=== PATIENT | male | born 1955 | race Caucasian/White ===

== ENCOUNTER 2017-04-10 14:30 | Inpatient (IN) ==
[2017-04-10 15:29] LABS: Basophils % 0.3 % (0.0-0.8); Eosinophils # 0.1 10*3/uL (0.0-0.87); Eosinophils % 1.3 % (0.00-10.9); Hematocrit 30.6 VOL% (42.0-52.0); Hemoglobin 10.9 GM/DL (14.0-18.0); Immature Granulocytes % 0.5 %; Immature Granulocytes Absolute 0.02 #; Lymphocytes # 0.7 10*3/uL (1.4-4.0); Mean Corpuscular HGB Conc 35.6 GM/DL (32-36); Mean Corpuscular Hemoglobin 42 PG (27-34); Mean Corpuscular Volume 118.1 FL (87-102); Mean Platelet Volume 9.4 FL (9.6-12.0); Monocytes # 0.4 10*3/uL (0.11-0.8); Neutrophils # 2.9 10*3/uL (1.4-7.4); Neutrophils % 71.9 % (38.7-73.9); Red Blood Count 2.59 MC/CUMM (3.8-5.5); Red Cell Distribution Width 14.6 % (9.3-17.3)
[2017-04-10 15:36] LABS: Platelet Count 102 T/CUMM (130-400)
[2017-04-10 15:46] LABS: Hypochromasia 1+; Platelet Estimate Decreased
[2017-04-10 15:55] LABS: Apearance,Urine CLEAR (Clear); Bilirubin,Urine Negative (Negative); Blood, Urine Negative (Negative); Calcium Oxalate Crystals,Urine Occasional /HPF (Few); Glucose,Urine (UA) Negative (Negative); Hyaline Casts,Urine 5 /LPF (0-3); Ketones,Urine Negative (Negative); Mucus,Urine Occasional /LPF (Occasional); Nitrite,Urine Negative (Negative); Protein,Urine 30 MG/DL; Squamous Epithelial Cell,Urine Occasional /HPF (0-10); Urine Color Amber (Yellow); Urine Specific Gravity 1.014 (1.001-1.035); WBC,Urine 4 /HPF (0-6)
[2017-04-10 16:01] LABS: Albumin 2.3 G/DL (3.4-5.0); Calcium 8.3 MG/DL (8.5-10.1); Magnesium 1.8 MG/DL (1.8-2.4); Osmolality,Calculated 270.8 MOS/KG (273-304); Potassium 3.3 MMOL/L (3.5-5.1); Total Protein 6.6 G/DL (6.4-8.3)
--- NOTE | 2017-04-10 16:07 | CT Report ---
CT abdomen pelvis w con Indication: Abdominal and pelvic pain. Comparison: None. Technique: CT of the abdomen and pelvis was performed following administration of intravenous contrast. The CT examination was performed using one or more of the following dose reduction techniques: Automatic exposure control, adjustment of the mA and kV according to patient size, or iterative reconstruction techniques. Findings: Lower chest: Heart is mildly enlarged. Coronary artery calcifications and/or stents are present. Additional history of previous sternotomy. Liver: The liver demonstrates a nodular margin and sclerotic features. A moderate amount of ascites is noted within the abdomen. Gallbladder: Partially calcified gallstones to calcified gallstones layer dependently within the gallbladder. Gallbladder wall thickening is present which is nonspecific finding in the setting of ascites. Spleen: Spleen is minimally enlarged suggesting portal venous hypertension. Spleen measures 14 cm in craniocaudal dimension, 5.3 cm in transverse dimension, and 14 cm in AP dimension. Pancreas: Pancreas demonstrates no significant abnormality. Adrenal glands: The adrenal glands demonstrate no significant abnormalities. Kidneys: Bilaterally, the kidneys demonstrate multiple calcifications of the renal arteries involving main renal arteries and interpolar renal arteries. No focal lesion of either kidney is demonstrated. Aorta: Aorta demonstrates diffuse intimal calcification which extends bilaterally into the iliac arteries. The common iliac arteries bilaterally demonstrate fusiform enlargement mural thrombus. The right common iliac artery measures 2.4 cm. The left common iliac artery measures up to 2.4 cm. Inferior vena cava: Inferior vena cava is normal in appearance. Lymph nodes: Celiac lymph node adjacent pancreatic head is demonstrated. This is borderline in size to minimally enlarged measuring 14 mm. This finding is nonspecific finding. Otherwise there is no adenopathy noted within the abdomen or pelvis. Stomach and bowel: The appearance of the stomach, duodenum, small bowel, and large bowel suggests no acute findings. A moderate to large amount of ascites is interval lobe and within the leaves of the mesentery. Appendix is unremarkable. Multiple diverticula are demonstrated along the descending colon and sigmoid colon. There may be some evidence of fat stranding along the periserosal surface of the sigmoid colon. The amount of ascites somewhat hinders interpretation. Intrapelvic contents: No acute findings are noted within the pelvis. Osseous structures: Multilevel degenerative changes of the lumbar spine are demonstrated. Vacuum disc phenomenon at L5-S1 is present. Soft tissues and musculature: Soft tissues and musculature of the body wall demonstrate no acute findings. Impression: 1. Cirrhotic appearance of the liver with findings suggesting mild portal venous hypertension and moderate to large amount of ascites are present. 2. Cholelithiasis is present. Gallbladder wall thickening additionally is present which is nonspecific finding in the setting of ascites. 3. Celiac axis lymph nodes are minimally enlarged which is a nonspecific finding in the setting of cirrhosis. 4. Sigmoid diverticulitis cannot be excluded. 04/10/2017 4:00 PM PROCEDURE INTERPRETED AT [facility] DEPARTMENT OF RADIOLOGY Final Report Signed by: Dr. Sarabjit Dupree
[2017-04-10] MEDS ORDERED: FUROSEMIDE 40 MG/4 ML VIAL IV STA (16:11)
--- NOTE | 2017-04-10 16:24 | Emergency Department Note ---
Arrival - Arrival Chief Complaint: Abdominal / Flank Pain Stated Complaint: belly pain and swollen ED Nursing Triage Note: c/o abd swelling onset 3 days ago. pt is having trouble standing. states feels like he is drunk. pt stopped drinking 4 days ago Mode of Arrival: Wheelchair Limitations: No Limitations Source: Patient Time Seen by Provider: 04/10/17 16:09 - History of Present Illness HPI Narrative: This 61-year-old white male presents with a history of 3 days of rapid distention of his abdomen. The patient has long-standing alcoholic liver disease anafact admits to 2 sixpacks of beer consumed 48 hours ago and alleges nonsense. The patient denies taking any medication for ascites on a regular basis and likewise denies any nausea, vomiting, abdominal pain, heartburn, belching, fever, or chills. He does as expected complain of loose stools which are pale to white as well as dark urine. During the same timeframe of increasing distention, he has had significant difficulty walking and has been ataxic during the same timeframe. Currently he is not jaundiced and in no medical distress. Onset (ago): day(s) (Patient presents onset of symptoms 3 days prior to presentation.) Allergies/Adverse Reactions: Allergies Allergy/AdvReac Type Severity Reaction Status Date / Time No Known Allergies Allergy Unverified 10/22/16 08:16 Home Medications: Home Medications Medication Instructions Recorded Confirmed Type Atorvastatin [Lipitor] 10 mg PO DAILY 04/10/17 04/10/17 History Efavirenz/Emtricitab/Tenofovir 1 each PO DAILY 04/10/17 04/10/17 History [Atripla Tablet] Lisinopril [Lisinopril] 5 mg PO QOTHER DAY 04/10/17 04/10/17 History Review of System - Review of System 12 point system: reviewed and no additional remarkable complaints except as stated - Review of System Constitutional: Present: as per HPI Gastrointestinal: Present: as per HPI Hematological/Lymphatic: Present: as per HPI Medical,Surgical,& Family Hx - Medical History Cardio: History of: Cardiovascular Problems (triple bypass) Gastrointestinal: History of: Liver Problems (enlarged) - Social History Smoking Status: Smoker, status unknown Frequency of Alcohol Use: Frequently Type of Drug Use: None Exam Physical Examination: GENERAL: Well developed, well nourished elderly white male in no acute distress. HEENT: Normocephalic. No trauma. Moist mucous membranes. EOMI. PERRLA. ENT NML NECK: Supple. No adenopathy. CARDIAC: Regular. No murmurs. Heart rate 93 CHEST: Clear to auscultation. No respiratory distress. O2 sat 100% ABDOMEN: Soft. Nontender. Large fluid wave with hypoactive bowel sounds. EXTREMITIES: No trauma. Normal ROM. No pedal edema. SKIN: No diaphoresis. No rash. No jaundice. NEURO: Alert. Oriented 3. Motor, sensory, vibratory intact. No asterixis no focal deficits. Vital Signs: Vital Signs Temperature 97.3 F L 04/10/17 16:39 Pulse Rate 93 H 04/10/17 16:39 Respiratory Rate 18 04/10/17 16:39 Blood Pressure 120/82 04/10/17 16:39 O2 Sat by Pulse Oximetry 100 04/10/17 14:43 Course - Reevaluation(s) Reevaluation #1: Advised patient of the need for hospitalization to stabilize his situation. - Consultations Consultation #1: Discussed with hospitalist service who will admit for further evaluation treatment. Results - Labs CBC & BMP: 04/10/17 15:03 04/10/17 15:03 Labs: I reviewed the laboratory noted the low potassium, low hematocrit, low platelets , elevated lactic acid, and diffuse abnormalities of LFT. - Impressions EKG: Sinus rhythm at 84 with normal VA interval but incomplete right bundle branch block. Old inferior IN. Nonspecific ST changes. No acute injury pattern noted. - Diagnostic Findings Procedure: Chest x-ray: image reviewed by me, report reviewed by me (No interval change with evidence of prior median sternotomy as well as borderline cardiomegaly.), CT Abdomen and Pelvis: image reviewed by me, report reviewed by me (Cirrhosis with moderate ascites, cholelithiasis, cannot rule out sigmoid diverticulitis) Disposition Clinical Impression: Alcoholic liver disease, Ascites, HIV Case discussed with: patient Disposition: Still a Patient Condition: Guarded Time of Disposition: 16:45
--- NOTE | 2017-04-10 16:31 | XRay Report ---
XR chest 1V portable Indication: Shortness of breath Comparison: Chest x-ray 05/10/2010 Technique: Portable AP chest was performed. Findings: The heart is minimally enlarged. Prior sternotomy is stable. Pulmonary vasculature demonstrates no specific abnormality. Hilar structures demonstrate fairly symmetric appearance. The lungs appear clear. Bones and soft tissues demonstrate no evidence of acute pathology. Impression: 1. No evidence of acute pathology. 04/10/2017 4:28 PM PROCEDURE INTERPRETED AT [facility] DEPARTMENT OF RADIOLOGY Final Report Signed by: Dr. Sarabjit Dupree
[2017-04-10] MEDS ORDERED: FUROSEMIDE 100 MG/10 ML VIAL ONE (16:41)
--- NOTE | 2017-04-10 16:42 | EKG Report ---
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
[2017-04-10] MEDS ORDERED: SPIRONOLACTONE 100 MG TABLET PO STA (16:58)
[2017-04-10] MEDS ORDERED: ONDANSETRON 4 MG/2 ML VIAL IV PRN (17:03)
[2017-04-10] MEDS ORDERED: chlordiazePOXIDE 25 MG CAPSULE PO PRN (17:03)
[2017-04-10] MEDS ORDERED: POTASSIUM CHLORIDE 20 MEQ TABLET PO STA (17:12)
[2017-04-10 17:23] LABS: INR 1.1; PT Patient Result 11.5 SECS; Partial Thromboplastin Time 29.2 SECS (0-40)
[2017-04-10] MEDS ORDERED: MAGNESIUM SULF RIDER 2 GM in PREMIX 1 EACH IV STA (17:23)
[2017-04-10 17:30] LABS: D-Dimer 2.9 MG/L FEU
[2017-04-10 17:39] LABS: Magnesium 1.8 MG/DL (1.8-2.4); Thyroid Stimulating Hormone 3.18 uIU/ml (0.358-3.74)
[2017-04-10 17:43] LABS: Barbiturates Screen,Urine Negative (Negative); Benzodiazepines Screen,Urine Negative (Negative); Cannabinoid Screen,Urine Negative (Negative); Opiate Screen,Urine Negative (Negative); Phencyclidine Screen,Urine Negative (Negative)
--- NOTE | 2017-04-10 17:45 | Hospitalist History & Physical ---
<Marek Burrows - Last Filed: 04/10/17 17:34> Assessment and Plan - Time spent with patient Time spent with patient: Greater than 30 minutes (1) Ascites due to alcoholic cirrhosis Status: Acute Assessment and plan: Admit for paracentesis. Obtain ABGs, blood cultures 2, hemoglobin A1c, blood ketones. Ertapenem IV every 24 hours. Continue vitamins including thiamine. Current Visit: Yes (2) HIV (human immunodeficiency virus infection) Status: Acute Assessment and plan: Followed by a [facility]. Currently on antivirals. Current Visit: Yes (3) History of coronary artery bypass graft x 3 Status: Acute Assessment and plan: Continue home medications as appropriate. Current Visit: Yes History of Present Illness Chief complaint: abdominal pain/distention History of present illness: Mr. Fofana is a 61 year old white male with a past medical history significant for HIV, coronary artery disease with triple bypass surgery, long-standing alcoholic liver disease who presents to the ED with a 3 day history of rapid distention of his abdomen. Patient notes that he woke up this morning and could not focus his eyes. He denies alcohol use for the past 48 hours, though he does state that he consumes several energy drinks and sodas throughout the day contributing to this ascites. Regarding his HIV, patient states that he is seen at her clinic every 3 months and has been on antivirals for several years now. On exam, the patient denies any knowledge of cirrhosis though he confirms prior knowledge of a "enlarged liver". He tells me that he was counseled to quit drinking however he has not done so. Patient denies headache, chest pain, shortness of breath, fever or chills, nausea or vomiting, excessive urine output , bright red blood per rectum. Labs on admission are WBC 4.0, hemoglobin 10.9, hematocrit 30.6, RBCs 2.59, platelet count 102, sodium 137, potassium 3.3, BUN 3 , creatinine 0.70, glucose 122, lactic acid 2.2, ammonia 25, BNP 89. Urinalysis is negative for infection. Serum alcohol is negative. Abdominal CT shows cirrhotic appearing liver suggestive of mild portal venous hypertension and moderate to large amounts of ascites. Cholelithiasis is also present with gallbladder wall thickening. Chest x-ray shows no evidence of acute pathology. Case has been discussed with Dr. Brady, ER physician, and Dr. Pascual, admitting physician the patient will be admitted to the hospital medicine service for further evaluation and treatment. Patient is a full code. Home medications have been reviewed and will be reconciled. Home Medications Medication Instructions Recorded Confirmed Type Atorvastatin [Lipitor] 10 mg PO DAILY 04/10/17 04/10/17 History Efavirenz/Emtricitab/Tenofovir 1 each PO DAILY 04/10/17 04/10/17 History [Atripla Tablet] Lisinopril [Lisinopril] 5 mg PO QOTHER DAY 04/10/17 04/10/17 History Allergies Allergy/AdvReac Type Severity Reaction Status Date / Time No Known Allergies Allergy Unverified 10/22/16 08:16 Medical,Surgical,& Family Hx - Medical History Cardio: History of: Cardiovascular Problems (triple bypass) Gastrointestinal: History of: Liver Problems (enlarged) Other: History of: HIV - Surgical History Cardiac Surgeries: Sugical HX of: Cardiac Surgery - Family History Family History: Reports;: Family Diabetes, Family Heart Disease, Family Hypertension - Social History Smoking Status: Former smoker Frequency of Alcohol Use: Frequently Type of Drug Use: None Marital Status: Single Lives With:: Alone Functional capacity: independent ambulation - Constitutional Constitutional: Absent: chills, fever(s), headache(s) - EENT Eyes: Present: other (Inability to focus) - Cardiovascular Cardiovascular: Present: edema. Absent: chest pain at rest, dyspnea, lightheadedness, palpitations - Respiratory Respiratory: Absent: cough - Gastrointestinal Gastrointestinal: Present: abdominal pain. Absent: heartburn, hematemesis, hematochezia, nausea, vomiting, jaundice - Genitourinary Genitourinary: Absent: difficulty urinating, hematuria - Psychiatric Psychiatric: Present: anxiety, confusion - Hematologic/Lymphatic Hematologic/Lymphatic: Present: easy bleeding, easy bruising Exam - Constitutional Vitals: Period Temp Pulse Resp BP Sys/Schmitt Pulse Ox Last 24 Hr 97.3 F-97.3 F 86-97 18-20 120-158/74-101 98-100 General appearance: mild distress, other (Obese) - Head Head exam: Present: normocephalic. Absent: abrasion, laceration - Eye Eye exam: Present: EOMI - Neck Neck exam: Present: normal inspection. Absent: lymphadenopathy, tenderness - Respiratory Respiratory exam: Present: clear to auscultation bilaterally. Absent: rhonchi, wheezes - GI/Abdominal GI/Abdominal exam: Present: ascites, distended, firm, tenderness. Absent: mass - Extremities Exam Extremities exam: Present: edema - Neurological Exam Neurological exam: Present: alert, oriented X3, CN II-XII intact - Psychiatric Psychiatric exam: Present: anxious - Skin Skin exam: Present: warm, dry, mottled, rash Results - Labs CBC & BMP: 04/10/17 15:03 04/10/17 15:03 Lab Results: I have reviewed the past 24 hour labs - EKG EKG results: interpreted by MICHAEL, sinus rhythm - Diagnostic Findings Procedure: Abdominal x-ray: image reviewed by me, report reviewed by me ( Cirrhotic appearing liver, ascites), Chest x-ray: image reviewed by me, report reviewed by me (Unremarkable) <SamaraNeha R - Last Filed: 04/10/17 18:48> Assessment and Plan (1) Ascites due to alcoholic cirrhosis Status: Acute Assessment and plan: SBP prophylaxis with invanz, US paracentesis by IR in am, therpeutic more than diagnostic, patient has known cirrhosis Current Visit: Yes (2) Pancytopenia Status: Acute Assessment and plan: PTT, PT, D-dimer, fibrinogen, most likely due to liver failure, cont thiamine and folate, consider checking b12 Current Visit: Yes (3) Ketosis Status: Acute Assessment and plan: serum ketones pending, no alcohol in two days, but smells still like alcohol, ? starvation ketosis Current Visit: Yes (4) Hypertension Status: Acute Assessment and plan: lisinopril 5 mg po daily Current Visit: Yes (5) HIV (human immunodeficiency virus infection) Status: Acute Assessment and plan: efavirenz/emtricitab/tenofovir Current Visit: Yes (6) History of coronary artery bypass graft x 3 Status: Acute Assessment and plan: not on anticoagulation due to pancytopenia, i would still consider giving him a baby asa Current Visit: Yes (7) Alcoholic Status: Acute Assessment and plan: thiamine, folate, librium and prn ativan Current Visit: Yes History of Present Illness History of present illness: Mr. Fofana is a 61 year old male patient seen and examined. Agree with above, patient has not drank for 48 hour. - EENT Eyes: Absent: blurry vision, diplopia Ears: Absent: decreased hearing, ear discharge - Neurological Neurological: Present: confusion, headache(s). Absent: syncope - Psychiatric Psychiatric: Present: depression - Endocrine Endocrine: Present: fatigue Exam - Constitutional Vitals: Period Temp Pulse Resp BP Sys/Schmitt Pulse Ox Last 24 Hr 97.3 F-97.3 F 86-97 18-20 120-158/74-101 98-100 - Eye Eye exam: Absent: scleral icterus Pupils: Present: HAWA, normal accommodation - ENT ENT exam: Present: normal exam, normal external ear exam - Cardiovascular Cardiovascular exam: Present: regular rate and rhythm. Absent: systolic murmur - Extremities Exam Extremities exam: Absent: normal capillary refill - Neurological Exam Neurological exam: Present: reflexes normal. Absent: motor sensory deficit - Psychiatric Psychiatric exam: Present: flat affect Results - Labs CBC & BMP: 04/10/17 15:03 04/10/17 15:03 Labs: Lactic acid 2.2, calcium 8.3, BNP 89, ammonia 25, lipase 131, TSH 3.18, UA positive for protein, 4 WBCs, hyaline casts, UA negative, serum alcohol less than 15, d-dimer 2.9 fibrinogen 266, INR 1.1, PTT 29
[2017-04-10 18:12] LABS: ABG Base Excess 0.5 MMOL/L (-2.5-2.5); ABG HCO3 24.9 MMOL/L (20-26); ABG Oxygen Saturation 97.7 % (95-100); ABG PCO2 33.6 MM HG (35-48); ABG PH 7.458 (7.35-7.45); ABG PO2 87.7 MM HG (80-95); ABG TCO2 20.9 MMOL/L (23-27); Allen Test Positive; Pt O2 Delivery Device Room Air
[2017-04-10] MEDS ORDERED: MAGNESIUM SULF RIDER 2 GM in PREMIX 1 EACH IV ONE (20:00)
[2017-04-10] MEDS ORDERED: POTASSIUM CHLORIDE 20 MEQ TABLET PO ONE (20:00)
[2017-04-10] MEDS: ENOXAPARIN 30 MG/0.3 ML SYRINGE SUBCUT SCH (20:13)
[2017-04-10] MEDS: LORazepam 1 MG TABLET PO PRN (20:13)
[2017-04-10] MEDS: LACTULOSE 20 GM/30 ML UDCUP PO SCH (20:13)
--- NOTE | 2017-04-10 20:50 | Ultrasound Report ---
US venous doppler LE BI Indication: Lower extremity swelling and pain. Comparison: None. Technique: Using a transcutaneous probe, grayscale, spectral Doppler, and color Doppler images of the bilateral lower extremity venous structures were captured and stored. Grayscale images prior to and following compression were obtained. Interrogated venous structures include the bilateral common femoral vein, superficial femoral vein (proximal, mid, and distal), and popliteal vein. Findings: There is no evidence of thrombus within the interrogated venous structures. the interrogated venous segments demonstrate presence of both color flow and spectral flow. Impression: 1. No evidence of venous thrombosis. 04/10/2017 8:48 PM PROCEDURE INTERPRETED AT [facility] DEPARTMENT OF RADIOLOGY Final Report Signed by: Dr. Sarabjit Dupree
[2017-04-10] MEDS ORDERED: CARVEDILOL 6.25 MG TABLET PO SCH (21:00)
[2017-04-10] MEDS: ERTAPENEM 1,000 MG in SODIUM CHLORIDE 0.9% 100 ML IV SCH (22:16)
[2017-04-11 07:07] LABS: Basophils % 0.6 % (0.0-0.8); Eosinophils # 0.1 10*3/uL (0.0-0.87); Eosinophils % 2.6 % (0.00-10.9); Hematocrit 26.6 VOL% (42.0-52.0); Hemoglobin 9.5 GM/DL (14.0-18.0); Immature Granulocytes % 0.6 %; Immature Granulocytes Absolute 0.02 #; Lymphocytes # 0.9 10*3/uL (1.4-4.0); Lymphocytes % 24.9 % (21.2-54.2); Mean Corpuscular HGB Conc 35.7 GM/DL (32-36); Mean Corpuscular Hemoglobin 42 PG (27-34); Mean Corpuscular Volume 117.7 FL (87-102); Mean Platelet Volume 9.6 FL (9.6-12.0); Monocytes # 0.3 10*3/uL (0.11-0.8); Monocytes % 9.4 % (1.7-12.7); Neutrophils # 2.1 10*3/uL (1.4-7.4); Neutrophils % 61.9 % (38.7-73.9); Platelet Count 99 T/CUMM (130-400); Red Blood Count 2.26 MC/CUMM (3.8-5.5); Red Cell Distribution Width 14.5 % (9.3-17.3); White Blood Count 3.4 T/CUMM (4-12)
[2017-04-11 07:40] LABS: Bilirubin,Total 1.8 MG/DL (0.2-1.0); Calcium 8.1 MG/DL (8.5-10.1); Osmolality,Calculated 272.5 MOS/KG (273-304); Potassium 3.5 MMOL/L (3.5-5.1); Risk Ratio 1.45; Total Protein 5.8 G/DL (6.4-8.3); VLDL CHOLESTEROL 7.8 MG/DL
[2017-04-11 07:49] LABS: Hypochromasia Slight; Lymphocytes 16 % (20-55); Microcytosis 1+; Platelet Estimate Decreased; Segmented Neutrophils 79 % (50-85); Total Cells Counted 100
[2017-04-11] MEDS ORDERED: SPIRONOLACTONE 100 MG TABLET PO SCH (09:00)
[2017-04-11] MEDS: FOLIC ACID 1 MG TABLET PO SCH (09:06)
[2017-04-11] MEDS: THIAMINE 100 MG TABLET PO SCH (09:06)
[2017-04-11] MEDS: MULTIVITAMIN (CENTRUM) TABLET PO SCH (09:06)
[2017-04-11] MEDS: ATRIPLA PO SCH (09:07)
[2017-04-11] MEDS: LISINOPRIL 5 MG TABLET PO SCH (09:07)
[2017-04-11] MEDS: LACTULOSE 20 GM/30 ML UDCUP PO SCH ×3 (09:07→21:15)
--- NOTE | 2017-04-11 10:12 | Post Interventional Procedure ---
Pre-op diagnosis: Ascites Post-op diagnosis: same Procedure: Paracentesis Radiologist: Evans Martin Anesthesia: local Specimens: other (3400 cc straw colored ascites) Estimated blood loss: none Complications: none Condition: stable Assessment and Plan - Time spent with patient Time spent with patient: Less than 30 minutes
[2017-04-11 10:41] LABS: Neutrophils,Peritoneal Fluid 76 %; RBC,Peritoneal Fluid 117 T/CUMM
--- NOTE | 2017-04-11 11:39 | Hospitalist Progress Note ---
Assessment and Plan (1) Ascites due to alcoholic cirrhosis Status: Acute Assessment and plan: 1)alcoholism- no alcohol for nearly 7 days without sign of withdrawal. on librium. 2)cirrhosis with first paracentesis for rapidly acculmulated ascites- PMNs in fluid 203- less than 250 benchmark for SBP. On invanz. consult to GI- he needs to be connected to someone for varices surveillance, management of diuretics, etc. Adjust aldactone that was started in the ER. add lasix orally also. 3)HIV- continue meds. 4)h/o CABG Current Visit: Yes (2) HIV (human immunodeficiency virus infection) Status: Acute Current Visit: Yes (3) History of coronary artery bypass graft x 3 Status: Acute Current Visit: Yes (4) Pancytopenia Status: Acute Current Visit: Yes (5) Hypertension Status: Acute Current Visit: Yes (6) Alcoholic Status: Acute Current Visit: Yes Hospitalist: Subjective Interval history: Mr Fofana is feeling ok, better after his paracentesis this morning. He has never had paracentesis before. He says he sees an ID doctor for his HIV and has known of enlarged liver but has not seen a stitch marker. He takes his meds regularly. He hasn't had anything to drink since 04/05. He denies any tremors or hallucinations. He is feeling good and is hungry. Lives alone and has some help nearby. Wants a wheelchair. Exam - Constitutional Vitals: Period Temp Pulse Resp BP Sys/Schmitt Pulse Ox Last 24 Hr 97.3 F-98.8 F 79-97 17-22 105-158/59-101 92-100 General appearance: no acute distress, over weight - Head Head exam: Present: normocephalic, atraumatic - Eye Eye exam: Present: EOMI. Absent: scleral icterus - Respiratory Respiratory exam: Present: clear to auscultation bilaterally - Cardiovascular Cardiovascular exam: Present: regular rate and rhythm - GI/Abdominal GI/Abdominal exam: Present: normal bowel sounds, ascites (still some fluid wave after paracentesis), soft. Absent: tenderness - Extremities Exam Extremities exam: Present: edema (trace) - Neurological Exam Neurological exam: Present: alert, oriented X3 (rambling speech, habitual licking of his lower lip/malagon, hopeful of curing cirrhosis), motor sensory deficit (generalized debility, requests wheechair.) - Skin Skin exam: Present: warm, dry Results - Labs CBC & BMP: 04/11/17 06:26 04/11/17 06:26 Lab Results: I have reviewed the past 24 hour labs
--- NOTE | 2017-04-11 12:23 | Ultrasound Report ---
US paracentesis abd w/image Indication: New onset ascites. HIV positive. Ultrasound-guided paracentesis Description: A formal timeout was performed. Maximum sterile barrier technique was used. The left lower quadrant was prepped and draped in sterile fashion. Under sonographic guidance, a 6 Hungarian pigtail catheter was advanced into the ascites using trocar technique. A captured sonographic image documents needle position. The needle was removed. Through the catheter, we obtained a total of 3400 cc of straw-colored ascites. No additional fluid could be obtained. Therefore, the catheter was removed. A bandage was placed at the puncture site. The patient tolerated the procedure well. Specimen: 3400 cc of ascites held for laboratory studies. Impression: Ultrasound-guided paracentesis. PROCEDURE INTERPRETED AT [facility] DEPARTMENT OF RADIOLOGY Final Report Signed by: Evans Martin M.D.
[2017-04-11 12:57] LABS: Hepatitis A Ab IgM Quant 0.14 Index; Hepatitis A Ab IgM Result Negative (Negative); Hepatitis B Core IgM Quant 0.05 Index; Hepatitis B Core IgM Result Negative (Negative); Hepatitis B Surface Ag Quant < 0.10 Index; Hepatitis B Surface Ag Result Negative (Negative); Hepatitis C Virus Ab Quant 0.17 Index; Hepatitis C Virus Ab Result Negative (Negative)
[2017-04-11] MEDS: FUROSEMIDE 40 MG TABLET PO SCH (13:41)
--- NOTE | 2017-04-11 15:08 | Gastrointestinal Consult Note ---
<Dayanna Lane - Last Filed: 04/11/17 15:04> Assessment and Plan (1) Cirrhosis Status: Acute Assessment and plan: 04/11-Admitted with abdominal distention with findings of ascites and noted on CT of abdomen of cirrhotic changes to the liver. 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 Paracentesis with 3400 ml removed on today, without findings of SBP. Albumin gradient of 1.4. Last endoscopy years prior with no knowledge of findings (3 years ago) in [place]. Attempt to obtain prior endoscopy records. Currently on Aldactone 50 BID and Laxix 40mg QD. Currently also on Invanz. Plan and addendum to follow by Dr Land. Current Visit: Yes History of Present Illness Chief complaint: Cirrhosis History of present illness: Mr. Fofana is a 61 year old male who was admitted to the hospital on 04/10 with abdominal pain and distention. Patient has a prior history of HIV, in which he is followed by Dr. Land out of [place] for this. He also has a history of CAD with bypass surgery as well as long-standing history of alcohol use. Patient states that over the last 3-4 days he is noted that his abdomen has began to swell. He states he was not feeling very well and on yesterday he noticed that he could not focus very well and his vision was being affected. He then came to the emergency room for further evaluation. Patient states that his last alcohol use was approximately 3 days ago. He states that he has drank approximately 12 beers a day since he was a teenager. Patient states that sometimes he drinks more often in higher quantities depending on "what is going on in my life". Patient denies any other recreational drug use. He states that approximately 3 years ago he was found to have an elevation in his liver enzymes and was told at that time that he had an enlarged liver. He was also told to discontinue his alcohol use in which patient states he did for a short time however he began drinking again. On admission, he had a CT of the abdomen with contrast and was noted to have cirrhotic appearance of the liver with mild portal venous hypertension as well as large amount of ascites. He was also noted to have cholelithiasis with some gallbladder wall thickening, nonspecific due to the ascites, as well as possible sigmoid diverticulitis. He was also noted to have a bilirubin of 1.8 and alkaline phosphatase of 203. He had large volume paracentesis this morning by Dr Martin with 3400cc removed, without findings of SBP. Albumin gradient noted at 1.4. Prior endoscopy approximately 3 years ago reported done at [place], unable to recall findings. Home Medications Medication Instructions Recorded Confirmed Type Atorvastatin [Lipitor] 10 mg PO DAILY 04/10/17 04/10/17 History Efavirenz/Emtricitab/Tenofovir 1 each PO DAILY 04/10/17 04/10/17 History [Atripla Tablet] Lisinopril [Lisinopril] 5 mg PO QOTHER DAY 04/10/17 04/10/17 History Allergies Allergy/AdvReac Type Severity Reaction Status Date / Time No Known Allergies Allergy Unverified 10/22/16 08:16 Medical,Surgical,& Family Hx - Medical History Cardio: History of: Cardiovascular Problems (triple bypass) Endocrine: History of: Dyslipidemia Gastrointestinal: History of: Liver Problems (enlarged) Other: History of: HIV - Surgical History Cardiac Surgeries: Sugical HX of: Cardiac Surgery - Family History Family History: Reports;: Family Diabetes (mother, father), Family Heart Disease (mother), Family Hypertension (mother) Denies;: Family Anesthesia Reaction, Family Cancer, Family Hematology, Family Psychiatric Problems, Family Stroke, Additional Family History - Social History Smoking Status: Current every day smoker Frequency of Alcohol Use: Frequently Type of Drug Use: None 12 point system: reviewed and no additional remarkable complaints except as stated - Constitutional Constitutional: Present: as per HPI - EENT Eyes: Present: as per HPI Ears: Present: as per HPI Nose, mouth and throat: Present: as per HPI - Cardiovascular Cardiovascular: Present: as per HPI - Respiratory Respiratory: Present: as per HPI - Gastrointestinal Gastrointestinal: Present: as per HPI, abdominal pain - Genitourinary Genitourinary: Present: as per HPI - Musculoskeletal Musculoskeletal: Present: as per HPI - Neurological Neurological: Present: as per HPI - Psychiatric Psychiatric: Present: as per HPI - Endocrine Endocrine: Present: as per HPI - Hematologic/Lymphatic Hematologic/Lymphatic: Present: as per HPI Exam - Constitutional Vitals: Period Temp Pulse Resp BP Sys/Schmitt Pulse Ox Last 24 Hr 96.7 F-98.8 F 79-97 17-22 105-158/59-101 91-100 General appearance: normal weight, no acute distress - Head Head exam: Present: normal inspection, normocephalic - Eye Eye exam: Present: other (Lids and conjunctive are unremarkable). Absent: scleral icterus - ENT ENT exam: Present: normal exam, normal oropharynx - Neck Neck exam: Present: normal inspection - Respiratory Respiratory exam: Present: clear to auscultation bilaterally. Absent: rales, rhonchi, wheezes - Cardiovascular Cardiovascular exam: Present: regular rate and rhythm. Absent: diastolic murmur , JVD, systolic murmur - GI/Abdominal GI/Abdominal exam: Present: normal bowel sounds, distended, soft. Absent: ascites, mass, organomegaly, tenderness - Extremities Exam Extremities exam: Present: normal inspection, full ROM - Back Exam Back exam: Present: normal inspection - Neurological Exam Neurological exam: Present: alert, oriented X3 - Psychiatric Psychiatric exam: Present: normal affect, normal mood - Skin Skin exam: Present: normal color, warm, dry Results - Labs CBC & BMP: 04/11/17 06:26 04/11/17 06:26 Lab Results: I have reviewed the past 24 hour labs - Diagnostic Findings Procedure: CT Abdomen and Pelvis: report reviewed by me, Ultrasound: report reviewed by me <Toni Land - Last Filed: 04/11/17 19:40> History of Present Illness History of present illness: Mr. Fofana is a 61 year old male Exam - Constitutional Vitals: Period Temp Pulse Resp BP Sys/Schmitt Pulse Ox Last 24 Hr 96.7 F-98.8 F 84-95 17-22 105-132/59-79 91-99 Results - Labs CBC & BMP: 04/11/17 06:26 04/11/17 06:26
[2017-04-11] MEDS: ENOXAPARIN 30 MG/0.3 ML SYRINGE SUBCUT SCH (21:15)
[2017-04-11] MEDS: SPIRONOLACTONE 100 MG TABLET PO SCH (21:15)
[2017-04-11] MEDS: ERTAPENEM 1,000 MG in SODIUM CHLORIDE 0.9% 100 ML IV SCH (21:15)
[2017-04-12 07:11] LABS: Basophils % 0.6 % (0.0-0.8); Eosinophils # 0.1 10*3/uL (0.0-0.87); Hematocrit 27.8 VOL% (42.0-52.0); Hemoglobin 9.7 GM/DL (14.0-18.0); Immature Granulocytes % 0.3 %; Immature Granulocytes Absolute 0.01 #; Lymphocytes # 0.9 10*3/uL (1.4-4.0); Lymphocytes % 27.3 % (21.2-54.2); Mean Corpuscular HGB Conc 34.9 GM/DL (32-36); Mean Corpuscular Hemoglobin 42 PG (27-34); Mean Corpuscular Volume 119.8 FL (87-102); Mean Platelet Volume 9.3 FL (9.6-12.0); Monocytes # 0.3 10*3/uL (0.11-0.8); Monocytes % 7.8 % (1.7-12.7); Platelet Count 113 T/CUMM (130-400); Red Blood Count 2.32 MC/CUMM (3.8-5.5); Red Cell Distribution Width 14.3 % (9.3-17.3); White Blood Count 3.3 T/CUMM (4-12)
[2017-04-12 07:46] LABS: Albumin 1.9 G/DL (3.4-5.0); Bilirubin,Total 0.7 MG/DL (0.2-1.0); Calcium 7.9 MG/DL (8.5-10.1); Calcium 8.1 MG/DL (8.5-10.1); Osmolality,Calculated 273.5 MOS/KG (273-304); Potassium 3.2 MMOL/L (3.5-5.1); Potassium 3.4 MMOL/L (3.5-5.1)
[2017-04-12 08:14] LABS: AFP Tumor 9.7 NG/ML (0-8)
[2017-04-12 08:20] LABS: Hypochromasia Slight
--- NOTE | 2017-04-12 08:53 | Gastrointestinal Progress Note ---
<DomingoDayanna Liliana - Last Filed: 04/12/17 08:51> Assessment and Plan (1) Cirrhosis Status: Acute Assessment and plan: 04/12-no complaints of today. Denies abdominal pain. AST mildly elevated. We will request daily weights. Plan an addendum to followed by Dr. Land. 04/11-Admitted with abdominal distention with findings of ascites and noted on CT of abdomen of cirrhotic changes to the liver. 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 Paracentesis with 3400 ml removed on today, without findings of SBP. Albumin gradient of 1.4. Last endoscopy years prior with no knowledge of findings (3 years ago) in [place]. Attempt to obtain prior endoscopy records. Currently on Aldactone 50 BID and Laxix 40mg QD. Currently also on Invanz. Plan and addendum to follow by Dr Land. Gastroenterology - PN: Subj Interval history: CC: Cirrhosis Patient is seen, up and ambulating around room. States that he is feeling some better today. Denies any abdominal pain, nausea or vomiting. Abdomen is soft, nontender. He is tolerating his diet at present time. AFP was checked and noted to be mildly elevated at 9.7. No weights noted on chart today. No signs of DTs or withdrawal seizures at this time. ROS: Denies shortness of breath or chest pain Exam (Progress Note) - Constitutional Vitals: Period Temp Pulse Resp BP Sys/Schmitt Pulse Ox Last 24 Hr 96.7 F-98.6 F 79-95 17-22 104-132/58-79 90-99 General appearance: normal weight, no acute distress - Head Head exam: Present: normal inspection, normocephalic - Eye Eye exam: Present: other (Lids and conjunctive are unremarkable). Absent: scleral icterus - ENT ENT exam: Present: normal exam, normal oropharynx - Neck Neck exam: Present: normal inspection - Respiratory Respiratory exam: Present: clear to auscultation bilaterally. Absent: rales, rhonchi, wheezes - Cardiovascular Cardiovascular exam: Present: regular rate and rhythm. Absent: diastolic murmur , JVD, systolic murmur - GI/Abdominal GI/Abdominal exam: Present: normal bowel sounds, soft. Absent: ascites, distended, mass, organomegaly, tenderness - Extremities Exam Extremities exam: Present: normal inspection, full ROM - Back Exam Back exam: Present: normal inspection - Neurological Exam Neurological exam: Present: alert, oriented X3 - Psychiatric Psychiatric exam: Present: normal affect, normal mood - Skin Skin exam: Present: normal color, warm, dry Results - Labs CBC & BMP: 04/12/17 06:53 04/12/17 06:53 Lab Results: I have reviewed the past 24 hour labs <Toni Land - Last Filed: 04/12/17 18:34> Exam (Progress Note) - Constitutional Vitals: Period Temp Pulse Resp BP Sys/Schmitt Pulse Ox Last 24 Hr 96.8 F-98.6 F 79-92 17-22 103-113/58-78 90-97 Results - Labs CBC & BMP: 04/12/17 06:53 04/12/17 06:53
[2017-04-12] MEDS ORDERED: LISINOPRIL 5 MG TABLET PO SCH (09:00)
[2017-04-12] MEDS: ATRIPLA PO SCH (09:15)
[2017-04-12] MEDS: THIAMINE 100 MG TABLET PO SCH (09:16)
[2017-04-12] MEDS: FUROSEMIDE 40 MG TABLET PO SCH (09:16)
[2017-04-12] MEDS: MULTIVITAMIN (CENTRUM) TABLET PO SCH (09:16)
[2017-04-12] MEDS: SPIRONOLACTONE 100 MG TABLET PO SCH (09:16)
[2017-04-12] MEDS: FOLIC ACID 1 MG TABLET PO SCH (09:16)
[2017-04-12] MEDS: LISINOPRIL 5 MG TABLET PO SCH (09:16)
[2017-04-12] MEDS: LACTULOSE 20 GM/30 ML UDCUP PO SCH (09:17)
[2017-04-12] MEDS: LORazepam 1 MG TABLET PO PRN (09:17)
[2017-04-12 12:02] VITALS: BP 103/73
--- NOTE | 2017-04-12 12:35 | Pathology Report from [facility] ---
[facility] [place] ACCESSION # : [id number] PATIENT NAME : Reid Fofana ORDERING DR : HILARY NORIEGA MD CLINICAL HX: Peritoneal Fluid, HIV+ POST-OP DX: Same SPECIMEN INFO: Fluid,Peritoneal - 1000 mls yellow, cloudy CLASS: II CLASS COMMENTS: Blood, inflammation, proteinaceous material, reactive cell groups.CELL BLOCK: Same CLASS LEGEND: CLASS 0 Material inadequate for diagnosis because of (see comment) CLASS I Absence of atypical or abnormal cells CLASS II Atypical Cytology but no evidence of malignancy CLASS III Cytology suggestive of but not conclusive for malignancy CLASS IV Cytology strongly suggestive of malignancy CLASS V Cytology conclusive for malignancy COLLECTED DATE: 04/11/2017 [facility] REPORT DATE: 04/12/2017 ELECTRONICALLY SIGNED BY: Arin Hudson III, M.D. 04/12/2017 - 9:11:25 [facility]ENTERLiliana
--- NOTE | 2017-04-12 13:49 | Discharge Summary ---
Hospital Course - Hospital Course Hospital Course: Mr. Fofana is a 61 year old white male with a past medical history significant for HIV, coronary artery disease with triple bypass surgery, long-standing alcoholic liver disease who presents to the ED with a 3 day history of rapid distention of his abdomen. Abdominal CT shows cirrhotic appearing liver suggestive of mild portal venous hypertension and moderate to large amounts of ascites. He was admitted to the hospitalist service for paracentesis. He was started on ertapenem. Paracentesis performed with 3400cc straw colored fluid removed by interventional radiology. Gastroenterology was consulted. Patient continues to drink alcohol, he will most likely require periodic taps. He has now reached maximal benefit of inpatient stay and will be discharged to home to follow-up with his pcp. - Time spent with patient Time with patient DS: Greater than 30 minutes (35) Diagnosis - Discharge Diagnosis (1) Ascites due to alcoholic cirrhosis Status: Resolved (2) HIV (human immunodeficiency virus infection) Status: Chronic (3) History of coronary artery bypass graft x 3 Status: Chronic (4) Hypertension Status: Chronic (5) Alcoholic Status: Chronic (6) Cirrhosis Status: Chronic Discharge Plan - Discharge Data Disposition: Disch To Home/Self Care Condition at Discharge: Stable Discharge Diet: low salt diet Activity: increase activity as tolerated Hygiene: no restrictions Weight Bearing at Discharge: weight bear as tolerated Driving: no restrictions Contact your physician if you experience:: Shortness of breath - Discharge Medications New Furosemide Tab [Lasix Tab] 40 mg PO DAILY #30 tablet Spironolactone [Aldactone] 50 mg PO BID #60 tablet Continue Atorvastatin [Lipitor] 10 mg PO DAILY Efavirenz/Emtricitab/Tenofovir [Atripla Tablet] 1 each PO DAILY Lisinopril 5 mg PO QOTHER DAY - Follow Up or Referral - Forms/Instructions Instructions: Spironolactone (By mouth), Furosemide (By mouth) Exam - Constitutional Vitals: Period Temp Pulse Resp BP Sys/Schmitt Pulse Ox Last 24 Hr 96.8 F-98.6 F 79-95 17-22 103-126/58-79 90-97 General appearance: over weight - Head Head exam: Present: normocephalic, atraumatic - Eye Eye exam: Present: EOMI Pupils: Present: [place] - ENT ENT exam: Present: normal exam - Neck Neck exam: Present: normal inspection - Respiratory Respiratory exam: Present: clear to auscultation bilaterally. Absent: rhonchi, wheezes - Cardiovascular Cardiovascular exam: Present: regular rate and rhythm - GI/Abdominal GI/Abdominal exam: Present: normal bowel sounds, soft. Absent: tenderness, rebound - Extremities Exam Extremities exam: Present: normal inspection - Back Exam Back exam: Present: normal inspection - Neurological Exam Neurological exam: Present: alert, oriented X3 - Psychiatric Psychiatric exam: Present: normal affect, normal mood - Skin Skin exam: Present: warm, intact Discharge Results Procedures and tests throughout hospitalization: Pending Orders 04/10/17 18:10 Cytology Request Stat 04/10/17 19:57 Blood Culture Stat 04/11/17 09:30 Body Fluid Cult and Gram Stain Stat 04/12/17 06:53 KEENA CSF([facility]) IN AM Ceruloplasmin IN AM Mitochondrial Antibody (M2) IN AM 04/13/17 04:00 Comp Blood Count Auto Diff IN AM Comprehensive Metabolic Panel IN AM Labs on day of discharge: Labs from last 24 hours 04/12/17 04/12/17 04/12/17 06:53 06:53 06:53 WBC RBC Hgb Hct MCV MCH MCHC RDW Plt Count MPV Neut % (Auto) Lymph % (Auto) [place] % (Auto) Eos % (Auto) Baso % (Auto) Neut # (Auto) Lymph # (Auto) [place] # (Auto) Eos # (Auto) Baso # (Auto) Immature Gran % Nucleated RBC % Immature Gran # Nucleated RBCs # Immature Plt Fraction Hypochromasia Sodium 139 139 Potassium 3.4 L 3.2 L Chloride 104 105 Carbon Dioxide 30 29 Anion Gap 8.4 8.2 BUN 5 L 4 L Creatinine 0.80 0.80 GFR Calculation 120 120 BUN/Creatinine Ratio 6.00 5.00 L Glucose 91 98 Calculated Osmolality 273.5 273.5 Calcium 8.1 L 7.9 L Total Bilirubin 0.70 AST 34 ALT 20 Alkaline Phosphatase 222 H Total Protein 6.0 L Albumin 1.9 L Globulin 4.1 H Albumin/Globulin Ratio 0.4 L Tumor Marker AFP 9.7 H 04/12/17 06:53 WBC 3.3 L RBC 2.32 L Hgb 9.7 L Hct 27.8 L MCV 119.8 H MCH 42 H MCHC 34.9 RDW 14.3 Plt Count 113 L MPV 9.3 L Neut % (Auto) 61.0 Lymph % (Auto) 27.3 [place] % (Auto) 7.8 Eos % (Auto) 3.0 Baso % (Auto) 0.6 Neut # (Auto) 2.0 Lymph # (Auto) 0.9 L [place] # (Auto) 0.3 Eos # (Auto) 0.1 Baso # (Auto) 0.0 Immature Gran % 0.3 Nucleated RBC % 0.0 Immature Gran # 0.01 Nucleated RBCs # 0.00 Immature Plt Fraction 1.3 Hypochromasia Slight Sodium Potassium Chloride Carbon Dioxide Anion Gap BUN Creatinine GFR Calculation BUN/Creatinine Ratio Glucose Calculated Osmolality Calcium Total Bilirubin AST ALT Alkaline Phosphatase Total Protein Albumin Globulin Albumin/Globulin Ratio Tumor Marker AFP Preliminary micro results at discharge 04/11/17 09:30 Body Fluid Culture - Preliminary Peritoneal Fluid No growth at 24 hours 04/10/17 19:57 Blood Culture - Preliminary Blood No growth at 1 day 04/10/17 19:57 Blood Culture - Preliminary Blood No growth at 1 day DS: Provider Date of admission: 04/10/17 17:31 Primary care physician: Elliott Oscar MD Attending physician on admission: Evans Davis MD Consults: 04/10/17 17:07 Consult to Physical Therapy [CONS] Routine Reason for Physical Therapy: Evaluate and Treat 04/11/17 11:45 Consult to Physician [CONS] Routine Comment: cirrhosis, ascites Consulting Provider: Toni Land Consult to Specialist Group: Gastroenterology When should Consulting Provider be notified: Now Person Notified: Dayanna Domingo Date Notified: 04/11/17 Time Notified: 14:06 Discharging clinician: Charlotte Enciso MD
[2017-04-15 11:51] LABS: Mitochondrial Antibody (M2) <0.1 U
[2017-04-18 20:31] LABS: Ceruloplasmin 25 mg/dL (18-36)
== END 2017-04-12 14:58 | disposition home or self-care (01) | DRG 432 ==
LOC: N.ED 14:30 → SUATTDRO 17:31 → N.EDINP 17:31 → N.5E 19:34
PROVIDERS: ADMIT Internal Medicine; ATTEND Internal Medicine